=== PATIENT | female | born 1970 | race Caucasian/White ===

== ENCOUNTER → 2020-09-23 | Outpatient (CLI) | payer BC ==
[~2020-09-23] MED LIST: AMITRIPTYLINE H10 M1 PO; CYCLOBENZAPRINE10 M2 PO; FLUTICASON0.05 MG/A1 NS; HYDROCODONE-ACETAMIN PO; LINZESS145 MCG PO; LYRICA 150MG C150 MG PO; MAXALT10 MG PO; PROBIOTIC FORMU1 CAP PO; SENNA SOFT15 MG PO; SINGULAIR10 MG PO
== END ==
LOC: RAD 10:53
DX: R59.0 Localized enlarged lymph nodes (principal); R10.32 Left lower quadrant pain; Z90.710 Acquired absence of both cervix and uterus
CPT/HCPCS: Q9967

== ENCOUNTER → 2023-04-26 | Outpatient (CLI) | payer BC | LOC: MAMMO 08:57 | DX: Z12.31 Encounter for screening mammogram for malignant neoplasm of breast (principal) ==